=== PATIENT | female | born 1970 | race Caucasian/White ===

== ENCOUNTER 2018-01-22 06:09 | Inpatient (IN) | payer OTHER ==
[2018-01-22] MEDS ORDERED: MIDAZOLAM 1 MG/ML 2 ML INJ ×2 (07:30→13:09)
[2018-01-22] MEDS ORDERED: METOCLOPRAMIDE 10 MG INJ IV (07:30)
[2018-01-22] MEDS ORDERED: MEPERIDINE 25 MG INJ IV (07:30)
[2018-01-22] MEDS ORDERED: HYDROmorphONE 1 MG/5 ML IV SYRINGE IV ×2 (07:30)
[2018-01-22] MEDS ORDERED: ONDANSETRON 4 MG INJ IV (07:30)
[2018-01-22] MEDS ORDERED: FENTAnyl 50 MCG/ML VIAL IV (07:30)
[2018-01-22] MEDS ORDERED: FENTAnyl 50 MCG/ML VIAL ×4 (07:41→13:15)
[2018-01-22] MEDS ORDERED: DEXAMETHASONE 4 MG/ML 1 ML INJ ×2 (08:35→12:20)
[2018-01-22] MEDS: GELATIN SIZE 100 SPONGE (08:41)
[2018-01-22] MEDS: POLYMYXIN/BACITRACIN 1L IRRIG (08:41)
[2018-01-22] MEDS: BUPIVACAINE 0.25%/EPI (SDV) 30 ML INJ (08:41)
[2018-01-22] MEDS: THROMBIN 5000 UNIT VIAL (08:49)
[2018-01-22] MEDS ORDERED: SUCCINYLCHOLINE CHLORIDE 100 MG/5 ML SYG IV (11:38)
[2018-01-22] MEDS ORDERED: CEFAZOLIN 1 GM INJ (11:38)
[2018-01-22] MEDS ORDERED: SUGAMMADEX SODIUM 200 MG/2 ML VIAL IV (11:38)
[2018-01-22] MEDS ORDERED: LIDOCAINE 100 MG SYRINGE (11:38)
[2018-01-22] MEDS ORDERED: ROCURONIUM 50 MG INJ (11:38)
[2018-01-22] MEDS ORDERED: PROPOFOL 20 ML (11:38)
[2018-01-22] MEDS ORDERED: PROCHLORPERAZINE 10 MG TAB PO (13:00)
[2018-01-22] MEDS ORDERED: ACETAMINOPHEN 325 MG TAB PO (13:00)
[2018-01-22] MEDS ORDERED: NACL 0.9% 3 ML SYG IV (13:00)
[2018-01-22] MEDS ORDERED: NALOXONE (0.4 MG/ML) INJ IV (13:00)
[2018-01-22] MEDS: HYDROmorphONE 0.2 MG/ML PCA IV ×2 (13:11→22:06)
[2018-01-22] MEDS: ONDANSETRON 4 MG INJ IV ×3 (13:12→23:04)
[2018-01-22] MEDS: MIDAZOLAM 1 MG/ML 2 ML INJ IV (13:12)
[2018-01-22] MEDS: DIPHENHYDRAMINE 50 MG INJ IV (13:25)
[2018-01-22] MEDS: FENTAnyl 50 MCG/ML VIAL IV (13:25)
[2018-01-22] MEDS: D5W-0.45 NACL + KCL 20 MEQ 1,000 ML IV (18:06)
[2018-01-22] MEDS: CEFAZOLIN 1 GM/50 ML (PMX) 50 ML IVPB ×2 (18:06→23:30)
[2018-01-22] MEDS: LIDOCAINE 5% PATCH TD (22:14)
[2018-01-22] MEDS: LORAZEPAM 1 MG TAB PO (23:30)
[2018-01-23] MEDS: D5W-0.45 NACL + KCL 20 MEQ 1,000 ML IV ×2 (04:32→16:09)
[2018-01-23] MEDS: CEFAZOLIN 1 GM/50 ML (PMX) 50 ML IVPB ×2 (05:36→11:52)
[2018-01-23 05:42] LABS: HEMATOCRIT 34.3 % (37.0-47.0); HEMOGLOBIN 11.4 g/dl (12.0-16.0)
[2018-01-23 06:04] LABS: ANION GAP 9 (8-16); BLOOD UREA NITROGEN 6 mg/dl (7-20); CALCIUM 8.3 mg/dl (8.4-10.2); CARBON DIOXIDE 28 mmol/L (21-31); CHLORIDE 107 mmol/L (97-110); CREATININE 0.66 mg/dl (0.44-1.00); GLUCOSE 122 mg/dl (70-220); POTASSIUM 3.7 mmol/L (3.5-5.1); SODIUM 140 mmol/L (135-144)
[2018-01-23] MEDS: DOCUSATE SODIUM 100 MG CAP PO ×2 (08:57→22:32)
[2018-01-23] MEDS: LIDOCAINE 5% PATCH TD (08:58)
[2018-01-23] MEDS: ONDANSETRON 4 MG INJ IV (12:17)
[2018-01-23] MEDS ORDERED: OXYCODONE/ACETAMINOPHEN (5/325) TAB PO (13:00)
[2018-01-23] MEDS ORDERED: HYDROmorphONE 0.5 MG/0.5 ML SYG IV (13:00)
[2018-01-23] MEDS ORDERED: HYDROmorphONE 0.2 MG/ML PCA IV (13:30)
[2018-01-23] MEDS: LORAZEPAM 2 MG INJ IV (14:15)
[2018-01-23] MEDS: DEXAMETHASONE 10 MG/ML 1 ML INJ IV (14:40)
[2018-01-23] MEDS ORDERED: VITAMIN A & D 5 GM OINT PACKET TOP (15:01)
[2018-01-23] MEDS: LORAZEPAM 1 MG TAB PO (22:34)
[2018-01-24] MEDS: D5W-0.45 NACL + KCL 20 MEQ 1,000 ML IV ×2 (02:46→11:56)
[2018-01-24 04:53] LABS: ADD MAN DIFF? NO
[2018-01-24 05:13] LABS: WHITE BLOOD COUNT 7.6 10^3/ul (4.8-10.8)
[2018-01-24 05:13] LABS: BASOPHILS % 0.1 % (0.0-2.0); HEMATOCRIT 33.1 % (37.0-47.0); HEMOGLOBIN 11.2 g/dl (12.0-16.0); LYMPHOCYTES # 1.2 10^3/ul (0.8-2.9); LYMPHOCYTES % 16.2 % (15.0-51.0); MEAN CORPUSCULAR HEMOGLOBIN 31.5 pg (29.0-33.0); MEAN CORPUSCULAR HGB CONC 33.8 g/dl (32.0-37.0); MEAN PLATELET VOLUME 11.5 fl (7.4-10.4); MONOCYTE # 0.9 10^3/ul (0.3-0.9); NEUTROPHIL # 5.4 10^3/ul (1.6-7.5); NEUTROPHILS % 70.9 % (39.0-77.0); PLATELET COUNT 215 10^3/UL (140-415); RED BLOOD COUNT 3.56 10^6/ul (4.20-5.40); RED CELL DISTRIBUTION WIDTH 11.4 % (11.5-14.5)
[2018-01-24 05:55] LABS: ANION GAP 10 (8-16); BLOOD UREA NITROGEN 7 mg/dl (7-20); CALCIUM 8.8 mg/dl (8.4-10.2); CARBON DIOXIDE 28 mmol/L (21-31); CHLORIDE 104 mmol/L (97-110); CREATININE 0.65 mg/dl (0.44-1.00); GLUCOSE 128 mg/dl (70-220); MAGNESIUM 2.1 mg/dl (1.7-2.5); PHOSPHORUS 3.3 mg/dl (2.5-4.9); POTASSIUM 3.7 mmol/L (3.5-5.1); SODIUM 138 mmol/L (135-144)
[2018-01-24] MEDS: LIDOCAINE 5% PATCH TD (09:26)
[2018-01-24] MEDS: OXYCODONE/ACETAMINOPHEN (5/325) TAB PO ×2 (11:56→18:19)
[2018-01-24] MEDS: DEXAMETHASONE 10 MG/ML 1 ML INJ IV (11:57)
[2018-01-24] MEDS: ONDANSETRON 4 MG INJ IV (12:07)
[2018-01-24] MEDS ORDERED: HYDROmorphONE 0.5 MG/0.5 ML SYG IV (13:00)
[2018-01-24] MEDS: ONDANSETRON 4 MG TAB PO (18:19)
== END 2018-01-24 18:40 | disposition home or self-care (01) | DRG 473 ==
LOC: REC 06:09 → MS1 14:54
PROC: 0RG20K0 Fusion of 2 or more Cervical Vertebral Joints with Nonautologous Tissue Substitute, Anterior Approach, Anterior Column, Open Approach (ICD-10-PCS; principal; 2018-01-22 07:30)
PROC: 0RT30ZZ Resection of Cervical Vertebral Disc, Open Approach (ICD-10-PCS; 2018-01-22 07:30)
DX: M50.122 Cervical disc disorder at C5-C6 level with radiculopathy (principal); M48.02 Spinal stenosis, cervical region; F41.9 Anxiety disorder, unspecified; R07.89 Other chest pain
CPT/HCPCS: 71045; 72040; 72050; 80048; 83735; 84100; 85014; 85018; 85025; 92526; 92610; 97110; 97116; 97161; 97530